=== PATIENT | male | born 1975 | race Caucasian/White ===

== ENCOUNTER 2018-06-28 13:27 | Emergency (ER) | payer OTHER ==
[2018-06-28 13:45] VITALS: TEMP 98; BMI 26.6
[2018-06-28] MEDS ORDERED: ACETAMINOPHEN 325 MG TABLET (FP) PO ONE (14:04)
[2018-06-28] MEDS ORDERED: diazePAM 2 MG TABLET PO ONE (14:04)
[2018-06-28] MEDS ORDERED: diazePAM 2 MG TABLET ONE (14:07)
[2018-06-28] MEDS ORDERED: ACETAMINOPHEN 325 MG TABLET (FP) ONE (14:07)
--- NOTE | 2018-06-28 14:11 | PDOC ---
History of Present Illness - General Chief Complaint: Back Pain Stated Complaint: BACK PAIN Time Seen by Provider: 06/28/18 13:48 History Source: Patient Exam Limitations: No Limitations - History of Present Illness Initial Comments: 06/28/18 14:09 42M with a PMH of degenerative disk disease who presents to the ER with complaints of low back pain. The patient states that he's had muscle spasms worsening over the past 2 days. He initially "almost" felt bowel incontinence but denies fever, IVDA, bowel/bladder incontinence, trauma. He admits to "tingling" in his genitals and b/l lower extremity weakness 2/2 pain. He states that he had an MRI on 06/17/18 and is unsure of the results. Past History - Past Medical History Allergies/Adverse Reactions: Allergies Allergy/AdvReac Type Severity Reaction Status Date / Time Penicillins Allergy Severe Difficulty Verified 06/28/18 13:43 Breathing aspirin Allergy Verified 06/28/18 13:43 ibuprofen Allergy Verified 06/28/18 13:43 Home Medications: Ambulatory Orders Cyclobenzaprine HCl [Flexeril -] 10 mg PO ONCE #7 tablet 06/28/18 predniSONE [Deltasone -] 60 mg PO DAILY #5 tablet 06/28/18 COPD: No Other medical history: denies - Immunization History Immunization Up to Date: Yes - Suicide/Smoking/Psychosocial Hx Smoking History: Current every day smoker Number of Cigarettes Smoked Daily: 10 Information on smoking cessation initiated: No Hx Alcohol Use: No Drug/Substance Use Hx: No Review of Systems - Review of Systems Able to Perform ROS?: Yes Comments:: 06/28/18 14:42 GENERAL/CONSTITUTIONAL: No fever or chills. No weakness. HEAD, EYES, EARS, NOSE AND THROAT: No change in vision. No ear pain or discharge. No sore throat. CARDIOVASCULAR: No chest pain, palpitations, or lightheadedness. RESPIRATORY: No cough, wheezing, shortness of breath, or hemoptysis. GASTROINTESTINAL: No nausea, vomiting, diarrhea, constipation, or abdominal pain. GENITOURINARY: No dysuria, frequency, hematuria, or change in urination. MUSCULOSKELETAL: + for low back spasms. No joint or muscle swelling or pain. No neck pain. SKIN: No rash or lesions. NEUROLOGIC: No headache, numbness, tingling, focal weakness, loss of consciousness, or change in strength/sensation. Is the patient limited Pashto proficient: No *Physical Exam - Vital Signs Last Vital Signs Temp Pulse Resp BP Pulse Ox 98 F 77 18 162/99 96 06/28/18 13:43 06/28/18 13:43 06/28/18 13:43 06/28/18 13:43 06/28/18 13:43 - Physical Exam Comments: 06/28/18 14:45 GENERAL: Well developed, well nourished. Awake and alert. No acute distress. HEENT: Normocephalic, atraumatic. Hearing grossly normal. Moist mucous membranes. PERRLA, EOMI. No conjunctival pallor. Sclera are non-icteric. NECK: Supple. Full ROM. No JVD. CARDIOVASCULAR: Regular rate and rhythm. No murmurs, rubs, or gallops. PULMONARY: No evidence of respiratory distress. Lungs clear to auscultation bilaterally. No wheezing, rales or rhonchi. ABDOMINAL: Soft. Non-tender. Non-distended. No rebound or guarding. MUSCULOSKELETAL: TTP over L spine with paraspinal tenderness. EXTREMITIES: No cyanosis. No clubbing. No edema. No calf tenderness or swelling. SKIN: Warm and dry. Normal capillary refill. No rashes. No jaundice. NEUROLOGICAL: Alert, awake, appropriate. Cranial nerves 2-12 intact. No deficits to light touch and temperature in face, upper extremities and lower extremities. 5/5 strength in quadriceps, hamstrings, and gastrocnemius. Normoreflexic in the upper and lower extremities. Normal speech. PSYCHIATRIC: Cooperative. Good eye contact. Appropriate mood and affect. Medical Decision Making - Medical Decision Making 06/28/18 14:46 42M with a PMH of degenerative disc disease who presents with low back spasms. No red flags and exam shows midline w/ paraspinal L spine tenderness. Pt has report of MRI showing L3-L5 disc disease with bulging on L side of L5. Pt has f/ u with neurologist this Thursday. Will treat with valium and acetaminophen and give steroids for swelling noted on MRI. 06/28/18 16:12 Pt states he feels much better and is ambulatory. Will d/c with neuro f/u on Thursday at [facility]. *DC/Admit/Observation/Transfer Diagnosis at time of Disposition: Low back pain Qualifiers: Chronicity: chronic Back pain laterality: bilateral Sciatica presence: with sciatica Sciatica laterality: sciatica of left side Qualified Code(s): M54.42 - Lumbago with sciatica, left side; G89.29 - Other chronic pain - Discharge Dispostion Disposition: HOME Condition at time of disposition: Stable Decision to Admit order: No - Prescriptions Prescriptions: Cyclobenzaprine HCl [Flexeril -] 10 mg PO ONCE #7 tablet predniSONE [Deltasone -] 60 mg PO DAILY #5 tablet - Referrals - Patient Instructions Printed Discharge Instructions: DI for Low Back Pain Additional Instructions: Your ER visit is not complete until your follow up with your primary care physician. Please follow up with your primary care physician in 1-2 days. Please return to the ER if you have any signs or symptoms of chest pain, shortness of breath, uncontrollable fever, chills, nausea, vomiting, numbness, tingling, or weakness in any part of your body, changes in vision, or slurred speech. Please return to the ER if symptoms persist, worsen, or new symptoms arise. - Post Discharge Activity
[2018-06-28] MEDS ORDERED: predniSONE 20 MG TABLET (UD) PO ONE (14:36)
--- NOTE | 2018-06-28 14:49 | PDOC ---
Documentation entered by Padmini Rolle SCRIBE, acting as scribe for Kit Eric MD. Kit Eric MD: This documentation has been prepared by the Sariah roth Daisy, SCRIBE, under my direction and personally reviewed by me in its entirety. I confirm that the documentation accurately reflects all work, treatment, procedures, and medical decision making performed by me. Attending Attestation - Resident Resident Name: MikelraulAgusto - ED Attending Attestation I have performed the following: I have examined & evaluated the patient, The case was reviewed & discussed with the resident, I agree w/resident's findings & plan - HPI HPI: 06/28/18 14:44 42y/o M h/o congenital spinal stenosis evaluated in the past by Neurology/spine surgery and recommended for intervention, has had spinal steroid injections in the past, now off meds for several months, began having exacerbation of his pain several weeks ago and scheduled to see his neurologist on Thursday, recent MRI in preparation for that visit notes mild to severe disease, with severe stenosis at L3L4 and nerve root impingment on L5. Now p/w increased pain despite tylenol at home. no incontinence or leg paralysis , but limited 2/2 pain. - Physicial Exam PE: 06/28/18 14:46 Afebrile. Alert lying in stretcher, well-appearing but with frequent sharp pains to his back Abdomen is benign, mild paraspinal discomfort to palpation without midline step- off 5 out of 5 flexion/extension of bilateral hips/knees/ankle/toes, but limited by pain Rectal per resident note - Medical Decision Making 06/28/18 14:47 42-year-old male with acute on chronic low back pain with radiculopathy, motor intact here but in moderate pain. No other red flags on history or physical exam , recent MRI notes deficits consistent with patient's presentation. No indication for emergent imaging Pain regimen of opiate and muscle relaxant, has severe ALLERGY to NSAIDs Initiate steroid Reassess, already has neurology follow-up scheduled in 3 days if can feel well enough to be discharged.
[2018-06-28] MEDS ORDERED: predniSONE 20 MG TABLET (UD) ONE (15:19)
[2018-06-28] MEDS ORDERED: oxyCODONE HCL 5 MG TABLET PO ONE (15:27)
[2018-06-28] MEDS ORDERED: oxyCODONE HCL 5 MG TABLET ONE (15:33)
[2018-06-28 16:26] VITALS: BP 164/94; PULSE 80
== END 2018-06-28 16:26 | disposition home or self-care (01) ==
LOC: JER 13:27
DX: M54.42 Lumbago with sciatica, left side (principal); G89.29 Other chronic pain; M62.830 Muscle spasm of back
CPT/HCPCS: 99281-25